=== PATIENT | male | born 1955 | race Caucasian/White ===

== ENCOUNTER → 2018-11-21 | Outpatient (CLI) | payer OTHER ==
[~2018-11-21] MED LIST: ASPI81CH PO; ATEN25 PO; BENTYL20 MG PO; CITA20 PO; CLON1 PO; LISI20 PO; OXYC10ER PO; OXYC5 PO
== END | disposition home or self-care (01) ==
LOC: LAB SRC 12:07 → LAB SHORT 12:07 → EDSTATUS 13:59
DX: Z51.81 Encounter for therapeutic drug level monitoring (principal); G89.29 Other chronic pain; Z79.899 Other long term (current) drug therapy
CPT/HCPCS: G0480